=== PATIENT | female | born 1930 | race Caucasian/White ===

== ENCOUNTER 2016-11-04 13:14 | Emergency (ER) | payer OTHER ==
--- NOTE | ~2016-11-04 | CT4 ---
[facility] A Service of [facility] RADIOLOGY TEXT RESULTS PATIENT: OLLIE DERAS LOCATION: SED : 29 UNIT #: [id number] AGE: [address]: William Marcum MD SEX: F ORDER DR: [id number] [address] [address] [id number] E MR#: [id number] Acc #: [id number] NAME: OLLIE DERAS : 1930 SEX: F STUDY DATE/TIME: 11/04/2016 14:01 UNIT: SED ROOM: STUDY DESCRIPTION: CT Abd and Pelv Wo Cont Attending Physician: William Marcum M.D. Ordering Physician: William Marcum M.D. Primary Care Physician: Dalia DelarosaPMoeRHasmukh MEDICAL IMAGING REPORT This report is preliminary unless electronic signature is present. EXAM CT abdomen and pelvis 11/04/2016 HISTORY Pain. Right flank pain; lower back pain started yesterday. Nausea. TECHNIQUE CT abdomen and pelvis performed without administration of oral or intravenous contrast. This CT exam was performed with one or more of the following radiation dose reduction techniques: automatic exposure control, adjustment of mA and/or kV according to patient size, and iterative reconstruction. COMPARISON 11/03/2015 FINDINGS Emphysema at lung bases. Mild cardiac enlargement. Stable. Liver shows no acute abnormality. Status post cholecystectomy. The spleen contains multiple calcified granulomata. Pancreas unremarkable. Adrenal glands unremarkable. Bilateral renal cysts unchanged from prior study which was a multiphase contrast-enhanced examination which demonstrated no suspicious renal nodules. Some of the renal cysts are less hypodense than others, but again the previous multiphase contrast-enhanced study showed no evidence of solid enhancing nodule. No renal calculi or obstruction. There are calcifications in the deep pelvis in vicinity of right ureter but these are unchanged from October 2015 and felt to be phleboliths. No acute appearing perinephric inflammatory change. CT Pelvis: No inguinal adenopathy. Urinary bladder unremarkable. 2.3 cm left renal cyst probably not significantly changed from prior examination. Certainly no larger. It could be marginally smaller. Given overall stability over this time frame benign etiology favored. No free fluid in STS. [facility] A Service of [facility] RADIOLOGY TEXT RESULTS PATIENT: OLLIE DERAS LOCATION: SED : 29 UNIT #: [id number] AGE: [address]: William Marcum MD SEX: F ORDER DR: pelvis. No pelvic or retroperitoneal adenopathy. The distal esophagus and stomach have a configuration suggesting prior distal gastric resection. No change from prior study. No acute gastric abnormality. Small bowel shows no acute abnormality. Patient is status post appendectomy by history. [place] colonic diverticulosis most pronounced in the sigmoid region. No indication of diverticulitis. Atherosclerotic arterial calcifications. Mild grade 1 anterolisthesis L4 on L5 felt secondary to disc and facet degenerative changes. There is an associated posterior concentric disc bulge at this level. Mild central spinal canal narrowing. There is narrowing of the bilateral neural foramina, more pronounced on the right than left. Exiting right L4 nerve irritation is a consideration. No change. No acute-appearing bony abnormality. IMPRESSION 1. No clearly acute abnormality is seen in the abdomen or pelvis. 2. Status post cholecystectomy. Patient appears to be status post distal gastrectomy. These postoperative changes are stable. 3. [place] colonic diverticulosis most pronounced in sigmoid colon. No morphologic findings of pancreatitis. 4. Bilateral renal cysts stable. No acute renal findings. No calculi or obstruction. 5. Left adnexal/ovarian cyst stable to marginally decreased in size from October 2015. [place] to be benign in nature. See discussion above. 6. Emphysema at lung bases. 7. Stable mild cardiac enlargement. 8. Degenerative changes in the spine. See discussion in body of report. If it would assist in management, lumbar spine could be further evaluated with elective MRI or CT. 1. Dictated by... Cristian Lagos M.D. THIS IS AN ELECTRONICALLY VERIFIED REPORT Cristian Lagos M.D. at 11/04/2016 5:16 PM ITALIAK/lance TD: 11/04/2016 15:45 JOB #: [id number] MEDICAL IMAGING REPORT Page 1 of 1
[~2016-11-04 13:14] MED LIST: ALLEGRA PO; ALPRAZOLAM PO; BACTRIM DS TABL1 TA1 PO; CIPRO PO; DARVOCET-N 1001 TAB PO; DYAZIDE 37.5/251 CAP PO; FERRO-TIME325 MG PO; FIORICET 50-301 EACH PO; FIORICET PO; FIORINAL 50-321 EACH PO; FLAGYL PO; FLEXERIL PO; FLEXERIL10 MG PO; GAS-X166 MG PO; HYDROCODON-ACE1 EACH PO; IMODIUM2 MG PO; IRON SUPPLEMENT1 TAB PO; LEVAQUIN PO; LORTAB 5-325 M1 EACH PO; MACROBID 100 M100 MG PO; METOPROLOL SUC100 MG PO; METRONIDAZOLE PO; MEVACOR PO; MOBIC PO; NABUMETONE PO; OMEPRAZOLE40 M1 PO; PRILOSEC PO; PROTONIX PO; PYRIDIUM PO; RELAFEN PO; RELAFEN500 MG PO; TOPROL XL PO; TOPROL XL100 MG PO; TRAMADOL HCL50 M2 PO; TRIAMTERENE-HC1 EAC1 PO; TRIAMTERENE-HCT1 TA8 PO; VICODIN PO; VIT D; VITAMIN B122500 MCG PO; VOLTAREN75 MG PO; ZANTAC PO; ZANTAC300 MG PO; ZOFRAN PO
[2016-11-04 13:42] LABS: MICRO INDICATED? YES; URINE APPEARANCE CLEAR; URINE BILIRUBIN NEG (NEG); URINE BLOOD NEG (NEG); URINE COLOR YELLOW; URINE GLUCOSE NEG (NORM); URINE KETONE NEG (NEG); URINE LEUKOCYTE ESTERASE 1+ (NEG); URINE NITRATE POS (NEG); URINE PROTEIN NEG (NEG); URINE UROBILINOGEN 0.2 MG/DL (NORM)
[2016-11-04 13:55] LABS: CULTURE INDICATED? YES; URINE BACTERIA 1+ (NEG); URINE RBC NEG /[HPF] (0-2); URINE SQUAMOUS EPITHELIAL CELL FEW /[HPF]; URINE WBC 0-2 /[HPF] (0-5)
[2016-11-04 14:02] LABS: EOSINOPHIL# 0.1 X10e3 (0-0.7); EOSINOPHIL% 2.4 % (0.0-7.0); HEMATOCRIT 40.4 % (35.0-45.0); HEMOGLOBIN 13.3 gm/dL (12.0-16.0); LYMPHOCYTE# 1.6 X10e3 (1.0-3.5); LYMPHOCYTE% 34.2 % (17.0-45.0); MEAN CELL VOLUME 90.9 FL (83-96); MEAN CORPUSCULAR HEMOGLOBIN 29.8 PG (28-34); MEAN CORPUSCULAR HGB CONC 32.8 g/dL (30-36); MEAN PLATELET VOLUME 8.6 FL (6.5-11.5); MONOCYTE# 0.5 X10e3 (0-1.0); MONOCYTE% 10.1 % (3.0-12.0); NEUTROPHIL# 2.4 X10e3 (1.5-7.1); NEUTROPHIL% 52.3 % (40-75); PLATELET COUNT 143 X10e3 (140-420); RED BLOOD COUNT 4.45 X10e (3.90-5.30); WHITE BLOOD COUNT 4.6 X10e3 (4.0-10.5)
[2016-11-04 14:13] LABS: DIFF IND NO
[2016-11-04 14:28] LABS: BILIRUBIN, DIRECT 0.1 mg/dL (0.0-0.2); BILIRUBIN,INDIRECT 0.3 mg/dL (0.0-0.9); BILIRUBIN,TOTAL 0.4 mg/dL (0.2-2.0); BUN/CREATININE RATIO 26.66; CALCIUM SERUM 8.7 mg/dL (8.4-10.2); CREATININE SERUM 0.9 mg/dL (0.6-1.4); GLOM FILT RATE Estimated 57.5 mL/min (>60); POTASSIUM 4.6 mmol/L (3.5-5.1); PROTEIN TOTAL SERUM 7.1 g/dL (6.0-8.3)
== END 2016-11-04 15:18 | disposition home or self-care (01) ==
LOC: SED 13:14
PROVIDERS: Emergency Medicine
DX: N39.0 Urinary tract infection, site not specified (principal); I48.91 Unspecified atrial fibrillation; K21.9 Gastro-esophageal reflux disease without esophagitis; I10 Essential (primary) hypertension; Z87.442 Personal history of urinary calculi; Z88.8 Allergy status to other drugs, medicaments and biological substances; Z88.5 Allergy status to narcotic agent; Z79.899 Other long term (current) drug therapy
CPT/HCPCS: 36415; 74176; 80048; 80076; 81003; 83690; 85025; 87086; 87088; 87186; 96374; 99284; J1885

== ENCOUNTER → 2016-11-07 | Outpatient (CLI) | payer OTHER ==
--- NOTE | ~2016-11-07 | XA166 ---
[facility] A Service of [facility] RADIOLOGY TEXT RESULTS PATIENT: OLLIE DERAS LOCATION: CIVR : 29 UNIT #: [id number] AGE: [address]: SHARON JACKSON DO SEX: F ORDER DR: [id number] [facility] [address] [place], [place] [address] [id number] O MR#: [id number] Acc #: [id number] NAME: OLLIE DERAS : 1930 SEX: F STUDY DATE/TIME: 11/07/2016 13:20 [facility] RO[facility]: STUDY DESCRIPTION: XA PICC Line Placement WO Port Attending Physician: Sharon Jackson D.O. Ordering Physician: Sharon Jackson M.D. MEDICAL IMAGING REPORT This report is preliminary unless electronic signature is present EXAM PICC line placed under ultrasound and fluoroscopy HISTORY Long-term antibiotic therapy. FINDINGS PRE-PROCEDURE The procedure was explained to the patient and/or patient hotel services sales representative including risks, benefits, potential complications and potential for alternative forms of treatment. Informed consent was obtained, and prior to initiating the procedure, a formal timeout procedure was performed. PROCEDURE Using full standard sterile barrier technique, including caps, gowns, gloves, and masks, as well as sterile skin preparation and standard sterile draping, the right arm was prepped and draped in the usual fashion, and real-time sterile ultrasound guidance was used to localize an arm vein and to confirm vessel patency. A hard copy ultrasound image was recorded. After local anesthesia with 1% Xylocaine, the vein was punctured using real-time sterile ultrasound guidance, and an 0.018 guidewire was advanced into the superior vena cava, using fluoroscopic guidance. A 4 Yoruba single-lumen PICC was then measured to 36 cm, cut, and deployed with the tip positioned in the superior vena cava. The position of the line was documented with a radiographic image. The line was secured in place with an adhesive dressing and an antibiotic patch was applied. Total fluoro time was 0.1 minutes. Total exposure was 2 mGy-cm air kerma. IMPRESSION Successful placement of a 4 Yoruba single lumen PowerPICC via the right arm under ultrasound and fluoroscopic guidance. The tip of the PICC is in good position in the superior vena cava. [facility] A Service of [facility] RADIOLOGY TEXT RESULTS PATIENT: OLLIE DERAS [facility] UNIT #: [id number] AGE: [address]: SHARON JACKSON DO SEX: F ORDER DR: Dictated by... Cristian Garcia M.D. THIS IS AN ELECTRONICALLY VERIFIED REPORT Cristian Garcia M.D. at 11/10/2016 5:11 PM SANTIAGO/yumiko TD: 11/07/2016 18:24 JOB #: [id number] MEDICAL IMAGING REPORT Page 1 of 1 COPY
== END | disposition home or self-care (01) ==
LOC: CIVR 12:55
PROC: 02HV33Z Insertion of Infusion Device into Superior Vena Cava, Percutaneous Approach (ICD-10-PCS; principal; 2016-11-07)
DX: N39.0 Urinary tract infection, site not specified (principal); Z45.2 Encounter for adjustment and management of vascular access device; K21.0 Gastro-esophageal reflux disease with esophagitis; E78.5 Hyperlipidemia, unspecified; I10 Essential (primary) hypertension; I08.3 Combined rheumatic disorders of mitral, aortic and tricuspid valves; M85.80 Other specified disorders of bone density and structure, unspecified site; D64.9 Anemia, unspecified; Z87.442 Personal history of urinary calculi; Z88.5 Allergy status to narcotic agent
CPT/HCPCS: 76937; 77001; 96365; 96374; C1751; J1335; J1642

== ENCOUNTER → 2016-12-26 | Outpatient (CLI) | payer OTHER ==
--- NOTE | ~2016-12-26 | XA166 ---
[facility] A Service of [facility] & [facility] RADIOLOGY TEXT RESULTS PATIENT: OLLIE DERAS LOCATION: CIVR : 29 UNIT #: [id number] AGE: [address]: Kylie Michael APRN SEX: F ORDER DR: [id number] [facility] [address] [place], [place] [address] [id number] O MR#: [id number] Acc #: [id number] NAME: OLLIE DERAS : 1930 SEX: F STUDY DATE/TIME: 12/26/2016 11:16 [facility] RO[facility]: STUDY DESCRIPTION: XA PICC Line Placement WO Port Attending Physician: Kylie Michael A.P.R.N. Referring Physician: Kylie Michael A.P.R.N. Ordering Physician: Kylie Michael A.P.R.N. Primary Care Physician: Kylie Michael A.P.R.N. MEDICAL IMAGING REPORT This report is preliminary unless electronic signature is present EXAM XA PICC line placement without port. INDICATIONS 86-year-old female who needs IV access for antibiotics. PRE-PROCEDURE The procedure was explained to the patient and/or patient uniforms sales representative including risks, benefits, potential complications and potential for alternative forms of treatment. Informed consent was obtained, and prior to initiating the procedure a formal timeout procedure was performed. PROCEDURE Using full standard sterile barrier technique, including caps, gowns, gloves, masks, as well as sterile skin preparation and standard sterile draping, the right arm (brachial vein) was prepped and draped in the usual fashion, and real-time sterile ultrasound guidance was used to localize an arm vein and to confirm vessel patency. A hard copy ultrasound image was recorded. After local anesthesia with 1% Xylocaine, the vein was punctured using real-time sterile ultrasound guidance, and an 0.018 guidewire was advanced into the superior vena cava, using fluoroscopic guidance. A 4-Dutch (36 cm) single-lumen PICC was then measured and deployed with the tip positioned in the superior vena cava. The position of the line was documented with a radiographic image. The line was secured in place with an adhesive dressing and an antibiotic patch was applied. Total fluoro time was 1.1 minutes. The Reference air kerma is 3 mGy. IMPRESSION Successful placement of a 4-Dutch 36 cm single-lumen PowerPICC via the right arm (brachial vein) under ultrasound and fluoroscopic guidance. The tip of the PICC is in good position in the superior vena cava. [facility] A Service of [facility] RADIOLOGY TEXT RESULTS PATIENT: OLLIE DERAS LOCATION: [facility] : 29 UNIT #: [id number] AGE: [address]: Kylie Michael APRN SEX: F ORDER DR: A single fluoroscopic spot image was obtained. Dictated by... Paul Siegel M.D. THIS IS AN ELECTRONICALLY VERIFIED REPORT Paul Siegel M.D. at 12/29/2016 12:15 PM LINDA/karolina TD: 12/26/2016 22:30 JOB #: [id number] MEDICAL IMAGING REPORT Page 1 of 1 COPY
== END | disposition home or self-care (01) ==
LOC: CIVR 10:56
DX: N39.0 Urinary tract infection, site not specified (principal); Z16.24 Resistance to multiple antibiotics; Z45.2 Encounter for adjustment and management of vascular access device; Z79.2 Long term (current) use of antibiotics
CPT/HCPCS: 76937; 77001; 96365; C1725; C1751; C1769; J1335

== ENCOUNTER 2017-01-04 16:41 | Emergency (ER) | payer OTHER ==
[~2017-01-04] VITALS: Ht 152.4 cm; Wt 59.0 kg
--- NOTE | ~2017-01-04 | CR169 ---
[facility] A Service of [facility] & [facility] RADIOLOGY TEXT RESULTS PATIENT: OLLIE DERAS LOCATION: SED : 29 UNIT #: [id number] AGE: [address]: Kendra Cheung MD SEX: F ORDER DR: [id number] [place] [id number] E MR#: [id number] Acc #: [id number] NAME: OLLIE DERAS : 1930 SEX: F STUDY DATE/TIME: 01/04/2017 16:58 UNIT: SED ROOM: STUDY DESCRIPTION: CR Knee 2 Views Lt Attending Physician: Kendra Cheung M.D. Ordering Physician: Kendra Cheung M.D. Primary Care Physician: Kylie Michael A.P.R.N. MEDICAL IMAGING REPORT This report is preliminary unless electronic signature is present. EXAM Left knee INDICATION Left knee pain and trauma. Fall. FINDINGS 2 views of the left knee without comparison. There is no acute fracture, dislocation, or knee effusion. No foreign body. There is some mild joint space narrowing and osteoarthritis. IMPRESSION No acute findings. Dictated by... Black Soriano M.D. THIS IS AN ELECTRONICALLY VERIFIED REPORT Black Soriano M.D. at 01/06/2017 10:30 AM KAVITA/jitendra TD: 01/05/2017 08:36 JOB #: [id number] MEDICAL IMAGING REPORT Page 1 of 1
== END 2017-01-04 17:53 | disposition home or self-care (01) ==
LOC: SED 16:41
DX: S51.011A Laceration without foreign body of right elbow, initial encounter (principal); S80.02XA Contusion of left knee, initial encounter; I10 Essential (primary) hypertension; W01.0XXA Fall on same level from slipping, tripping and stumbling without subsequent striking against object, initial encounter; Y92.89 Other specified places as the place of occurrence of the external cause
CPT/HCPCS: 73560; 99283

== ENCOUNTER → 2017-02-06 | Outpatient (CLI) | payer OTHER ==
--- NOTE | ~2017-02-06 | XA166 ---
[facility] A Service of [facility] & [facility] RADIOLOGY TEXT RESULTS PATIENT: OLLIE DERAS LOCATION: CIVR : 29 UNIT #: [id number] AGE: [address]: SHARON JACKSON DO SEX: F ORDER DR: [id number] [facility] [address] [place], [place] [address] [id number] O MR#: [id number] Acc #: [id number] NAME: OLLIE DERAS : 1930 SEX: F STUDY DATE/TIME: 02/06/2017 14:57 [facility]: STUDY DESCRIPTION: XA PICC Line Placement WO Port Attending Physician: Sharon Jackson D.O. Referring Physician: Sharon Jackson D.O. Ordering Physician: Kylie Michael A.P.R.N. Primary Care Physician: Kylie Michael A.P.R.N. MEDICAL IMAGING REPORT This report is preliminary unless electronic signature is present EXAM Right-sided PICC line placement INDICATIONS Need for IV access for IV antibiotics. 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 TECHNIQUE The procedure was explained to the patient including risks, benefits, potential complications, potential for alternative forms of treatment, informed consent was obtained and prior to initiating the procedure a formal time-out procedure was performed. Using all elements of maximal sterile barrier technique including hand hygiene, caps, sterile gowns and gloves and masks, the right arm was prepped with 2% chlorhexidine for cutaneous antisepsis and covered with a large sterile sheet. The ultrasound probe was covered with a sterile probe cover and sterile gel was applied. Real-time sterile ultrasound guidance was used to localize a right upper extremity vein, which was found to be patent and compressible. A hard-copy ultrasound image was obtained. After local anesthesia with 1% Xylocaine, the vein was punctured using real-time sterile ultrasound guidance and an 0.018 guidewire was advanced into the right brachial vein. I could not advance the wire any further, a Peel-Away sheath was placed, venogram was performed and no stenosis was seen. Presumably, the patient had a valve within the area of concern and at this point, I was able to manipulate the wire past this valve and into the superior vena cava. Catheter was measured and trimmed and was advanced over the wire and positioned within the superior vena cava. Following placement of the catheter, it flushed and aspirated easily. Total fluoroscopy time was 0.5 minutes. [place] was 1 mGy. IMPRESSION [facility] A Service of [facility] RADIOLOGY TEXT RESULTS PATIENT: OLLIE DERAS LOCATION: [facility] : 29 UNIT #: [id number] AGE: [address]: SHARON JACKSON DO SEX: F ORDER DR: Successful placement of a right-sided PICC line, which terminates within the superior vena cava. This catheter is ready for immediate use. Ultrasound and fluoroscopy were used during placement of the catheter and permanent images were saved. Dictated by... Milla Holley M.D. THIS IS AN ELECTRONICALLY VERIFIED REPORT Milla Holley M.D. at 02/09/2017 4:54 PM AFF/psc TD: 02/09/2017 15:39 JOB #: [id number] MEDICAL IMAGING REPORT Page 1 of 1 COPY
== END | disposition home or self-care (01) ==
LOC: CIVR 14:20
DX: N39.0 Urinary tract infection, site not specified (principal); Z79.899 Other long term (current) drug therapy
CPT/HCPCS: 75820; 76937; 77001; C1751; J1642; Q9967